=== PATIENT | female | born 1985 | race Caucasian/White ===

== ENCOUNTER 2021-12-17 12:05 | Inpatient (IN) | payer SELFPAY ==
[~2021-12-17 12:05] MED LIST: COLACE 100MG C100 MG PO
[2021-12-17 13:57] LABS: HEMOGLOBIN 11.6 gm/dl (12.3-15.3); RED BLOOD COUNT 3.72 M/UL (4.00-5.10); WHITE BLOOD COUNT 12.4 K/UL (4.5-11.0)
[2021-12-18 06:56] LABS: HEMOGLOBIN 11.9 gm/dl (12.3-15.3)
== END 2021-12-18 23:02 | disposition home or self-care (01) | DRG 806 ==
LOC: OB 12:05
PROVIDERS: ADMIT Obstetrics & Gynecology
PROC: 10E0XZZ Delivery of Products of Conception, External Approach (ICD-10-PCS; principal; 2021-12-17)
PROC: 10907ZC Drainage of Amniotic Fluid, Therapeutic from Products of Conception, Via Natural or Artificial Opening (ICD-10-PCS; 2021-12-17)
PROC: 3E033VJ Introduction of Other Hormone into Peripheral Vein, Percutaneous Approach (ICD-10-PCS; 2021-12-17)
PROC: 4A1H7CZ Monitoring of Products of Conception, Cardiac Rate, Via Natural or Artificial Opening (ICD-10-PCS; 2021-12-17)
PROC: 10H073Z Insertion of Monitoring Electrode into Products of Conception, Via Natural or Artificial Opening (ICD-10-PCS; 2021-12-17)
PROC: 0UH97HZ Insertion of Contraceptive Device into Uterus, Via Natural or Artificial Opening (ICD-10-PCS; 2021-12-17)
DX: O32.0XX0 Maternal care for unstable lie, not applicable or unspecified (principal); O72.1 Other immediate postpartum hemorrhage; Z37.0 Single live birth; O62.2 Other uterine inertia; Z3A.39 39 weeks gestation of pregnancy; Z28.310 Unvaccinated for COVID-19; O09.43 Supervision of pregnancy with grand multiparity, third trimester
CPT/HCPCS: 81001; 85014; 85018; 85025; J1650; J1885; J2210; J2590; J7120

== ENCOUNTER → 2021-12-22 | Outpatient (CLI) | payer SELFPAY | LOC: EXRD 14:18 | DX: R22.43 Localized swelling, mass and lump, lower limb, bilateral (principal) | CPT/HCPCS: 93971 ==